=== PATIENT | female | born 1985 | race Caucasian/White ===

== ENCOUNTER 2024-03-03 04:49 | Emergency (ER) | payer OTHER ==
[2024-03-03 06:01] LABS: HEMATOCRIT 40.7 % (36.0-47.0); HEMOGLOBIN 13.7 g/dl (12.0-15.5); MEAN CORPUSCULAR HEMOGLOBIN 33.1 pg (27.0-33.0); MEAN CORPUSCULAR HGB CONC 33.7 g/dl (32.0-36.5); MEAN CORPUSCULAR VOLUME 98.3 fl (80.0-96.0); PLATELET COUNT, AUTOMATED 131 10^3/uL (150-450); RED BLOOD COUNT 4.14 10^6/uL (4.00-5.40); WHITE BLOOD COUNT 6.5 10^3/uL (4.0-10.0)
[2024-03-03 06:18] LABS: AMPHETAMINES LEVEL URINE NEGATIVE (NEGATIVE); BARBITURATES URINE NEGATIVE (NEGATIVE); BENZODIAZEPINES URINE NEGATIVE (NEGATIVE); COCAINE METABOLITE URINE NEGATIVE (NEGATIVE)
[2024-03-03 06:19] LABS: CANNABINOIDS URINE NEGATIVE (NEGATIVE); METHADONE URINE NEGATIVE (NEGATIVE); OPIATES URINE NEGATIVE (NEGATIVE); PHENCYCLIDINE URINE NEGATIVE (NEGATIVE)
[2024-03-03 06:21] LABS: ETHYL ALCOHOL (ETHANOL) 0.179 % (0.000-0.010)
[2024-03-03 06:23] LABS: ALBUMIN 3.9 G/DL (3.2-5.2); ALKALINE PHOSPHATASE 86 U/L (46-116); ALT/SGPT 208 U/L (7.0-40); AST/SGOT 203 U/L (<34); BILIRUBIN,DIRECT 0.2 MG/DL (<0.4); BILIRUBIN,TOTAL 0.5 MG/DL (0.3-1.2); BLOOD UREA NITROGEN 10 MG/DL (9-23); CALCIUM LEVEL 8.6 MG/DL (8.5-10.1); CARBON DIOXIDE LEVEL 22 MMOL/L (20-31); CHLORIDE LEVEL 104 MMOL/L (98-107); CREATININE FOR GFR 0.62 MG/DL (0.55-1.30); GLOMERULAR FILTRATION RATE > 60.0 (>60); GLUCOSE, FASTING 110 MG/DL (60-100); POTASSIUM SERUM 3.1 MMOL/L (3.5-5.1); SALICYLATE LEVEL < 3.0 MG/DL (<30); SODIUM LEVEL 138 MMOL/L (136-145); TOTAL PROTEIN 7.5 G/DL (5.7-8.2)
[2024-03-03 06:25] LABS: THYROID STIMULATING HORMONE 19.556 uIU/ML (0.55-4.78)
[2024-03-03 07:39] LABS: FREE T4 0.86 NG/DL (0.89-1.76)
[2024-03-03 07:47] LABS: HCG, SERUM QUALITATIVE NEGATIVE (NEGATIVE)
[2024-03-03] MEDS ORDERED: BUDE10.22 IH (08:47)
[2024-03-03] MEDS ORDERED: SYNT150T PO (08:47)
[2024-03-03] MEDS: LEVOTHYROXINE 150MCG TABLET (0.15MG) PO ONE (09:40)
[2024-03-03 12:25] VITALS: BP 160/97; TEMP 97.7; O2SAT 98
== END 2024-03-03 12:26 | disposition home or self-care (01) ==
LOC: M ED 04:49
DX: F32.A Depression, unspecified (principal); F10.10 Alcohol abuse, uncomplicated; I10 Essential (primary) hypertension; E78.5 Hyperlipidemia, unspecified; R45.851 Suicidal ideations; Z79.899 Other long term (current) drug therapy